=== PATIENT | male | born 1975 | race Hispanic/Latino ===

== ENCOUNTER 2020-12-12 03:30 | Inpatient (IN) | payer SELFPAY ==
[2020-12-12 04:54] LABS: #Lymphocytes 0.4 thou/uL (1.20-3.40); #Monocytes 0.1 thou/uL (0.11-0.59); #Neutrophils 1.6 thou/uL (1.40-6.50); %Eosinophils 0.3 % (0.0-10.0); %Lymphocytes 20.5 % (21.0-51.0); %Monocytes 2.2 % (0.0-10.0); %Neutrophils 76.9 % (42.0-75.0); Hemoglobin 14.4 g/dL (14.0-18.0); Mean Corpuscular HGB CONC 34.3 g/dL (32.0-36.0); Mean Corpuscular Hemoglobin 30.3 pg (27.0-31.0); Mean Corpuscular Volume 88.4 fL (78.0-98.0); Mean Platelet Volume 8.2 fL (7.4-10.4); Platelet Count 289 thou/uL (130-400); RBC Distribution Width 11.4 % (11.5-14.5); Red Blood Cell (RBC) Count 4.73 mill/uL (4.70-6.10)
[2020-12-12 05:13] LABS: ALT (SGPT) 33 U/L (8-55); AST (SGOT) 25 U/L (5-34); Albumin 3.2 g/dL (3.5-5.0); Alkaline Phosphatase 87 U/L (40-110); Anion Gap 20 mmol/L (10-20); BUN (Urea Nitrogen) 22 mg/dL (8.9-20.6); Bilirubin, Total 0.4 mg/dL (0.2-1.2); Calc. Creatinine Clearance 0 mL/min (70-130); Calcium 8.6 mg/dL (7.8-10.44); Carbon Dioxide 23 mmol/L (22-29); Chloride 98 mmol/L (98-107); Globulin 3.7 g/dL (2.4-3.5); Glucose 360 mg/dL (70-105); Potassium 4.8 mmol/L (3.5-5.1); Protein, Total 6.9 g/dL (6.0-8.3); Sodium 136 mmol/L (136-145)
[2020-12-12] MEDS ORDERED: Ondansetron PF 4 MG/2 ML Vial IVP PRN (07:00)
[2020-12-12] MEDS ORDERED: Ondansetron ODT 4 MG TAB SL PRN (07:00)
[2020-12-12] MEDS ORDERED: Acetaminophen 325 MG TAB PO PRN (07:00)
[2020-12-12] MEDS ORDERED: Loperamide HCl 2 MG CAP PO PRN ×2 (07:53)
[2020-12-12] MEDS ORDERED: Dextrose 5% in Water 1,000 ML IV PRN (07:55)
[2020-12-12] MEDS ORDERED: Dextrose 50% Abboject 50 ML SYRINGE SLOW IVP PRN (07:55)
[2020-12-12] MEDS ORDERED: REMDESIVIR (EUA) 200 MG in Sodium Chloride 0.9% 250 ML 210 ML IV SCH (09:00)
[2020-12-12] MEDS ORDERED: Enoxaparin Sodium 40 MG/0.4 ML SYRINGE SC SCH (09:00)
[2020-12-12] MEDS: Zinc Sulfate 220 MG CAP PO SCH (11:29)
[2020-12-12] MEDS: Ascorbic Acid 500 mg Chewable Tablet PO SCH (11:29)
[2020-12-12] MEDS: Dexamethasone 4 MG TAB PO SCH (11:30)
[2020-12-12] MEDS: HumaLOG 300 UNITS/3 ML VIAL SC PRN ×3 (11:31→21:12)
[2020-12-12] MEDS: Preparation H HC 1% Cream 26 GM TUBE TOP SCH (16:33)
[2020-12-12] MEDS: Insulin Glargine 10 UNITS in Pre-Filled Syringe 1 EACH SC SCH (21:12)
[2020-12-13] MEDS: Acetaminophen 325 MG TAB PO PRN (04:57)
[2020-12-13] MEDS: HumaLOG 300 UNITS/3 ML VIAL SC PRN ×3 (04:58→18:17)
[2020-12-13 05:31] LABS: #Lymphocytes 0.5 thou/uL (1.20-3.40); #Monocytes 0.3 thou/uL (0.11-0.59); #Neutrophils 4.2 thou/uL (1.40-6.50); %Basophils 0.1 % (0.0-1.0); %Eosinophils 0.2 % (0.0-10.0); %Lymphocytes 9.4 % (21.0-51.0); %Monocytes 5.2 % (0.0-10.0); %Neutrophils 85.1 % (42.0-75.0); Hemoglobin 14.3 g/dL (14.0-18.0); Mean Corpuscular HGB CONC 34.8 g/dL (32.0-36.0); Mean Corpuscular Hemoglobin 30.7 pg (27.0-31.0); Mean Corpuscular Volume 88.2 fL (78.0-98.0); Mean Platelet Volume 8.2 fL (7.4-10.4); Platelet Count 245 thou/uL (130-400); RBC Distribution Width 11.2 % (11.5-14.5); Red Blood Cell (RBC) Count 4.65 mill/uL (4.70-6.10)
[2020-12-13 05:51] LABS: Anion Gap 17 mmol/L (10-20); BUN (Urea Nitrogen) 27 mg/dL (8.9-20.6); Calc. Creatinine Clearance 120 mL/min (70-130); Calcium 8.6 mg/dL (7.8-10.44); Carbon Dioxide 23 mmol/L (22-29); Chloride 97 mmol/L (98-107); Glucose 394 mg/dL (70-105); Potassium 4.9 mmol/L (3.5-5.1); Sodium 132 mmol/L (136-145)
[2020-12-13] MEDS ORDERED: Sodium Chloride 0.9% 500 ML IV SCH (08:15)
[2020-12-13] MEDS: Zinc Sulfate 220 MG CAP PO SCH (08:41)
[2020-12-13] MEDS: Enoxaparin Sodium 40 MG/0.4 ML SYRINGE SC SCH ×2 (08:41→20:44)
[2020-12-13] MEDS: Dexamethasone 4 MG TAB PO SCH (08:41)
[2020-12-13] MEDS: Ascorbic Acid 500 mg Chewable Tablet PO SCH (08:41)
[2020-12-13 08:42] LABS: Hemoglobin A1c 8.9 % (4.0-6.0)
[2020-12-13] MEDS: REMDESIVIR (EUA) 100 MG in Sodium Chloride 0.9% 250 ML 230 ML IV SCH (08:42)
[2020-12-13] MEDS: Preparation H HC 1% Cream 26 GM TUBE TOP SCH ×2 (08:42→20:57)
[2020-12-13] MEDS ORDERED: FLU VACC QS2020-21(6MOS UP)/PF 60 MCG/0.5 ML SYRINGE IM ONE (09:00)
[2020-12-13] MEDS ORDERED: Preparation H Ointment 28 GM TUBE TOP PRN (10:39)
[2020-12-13] MEDS ORDERED: Witch Hazel-Glycerin 1 EACH JAR TOP PRN (10:39)
[2020-12-13] MEDS: Insulin Glargine 10 UNITS in Pre-Filled Syringe 1 EACH SC SCH (20:45)
[2020-12-14 05:25] LABS: #Lymphocytes 0.8 thou/uL (1.20-3.40); #Monocytes 0.2 thou/uL (0.11-0.59); #Neutrophils 4.1 thou/uL (1.40-6.50); %Basophils 0.2 % (0.0-1.0); %Eosinophils 0.8 % (0.0-10.0); %Lymphocytes 15.5 % (21.0-51.0); %Monocytes 3.6 % (0.0-10.0); %Neutrophils 79.9 % (42.0-75.0); Hemoglobin 13.6 g/dL (14.0-18.0); Mean Corpuscular HGB CONC 32.7 g/dL (32.0-36.0); Mean Corpuscular Hemoglobin 28.8 pg (27.0-31.0); Mean Platelet Volume 8.3 fL (7.4-10.4); Platelet Count 240 thou/uL (130-400); RBC Distribution Width 11.2 % (11.5-14.5); Red Blood Cell (RBC) Count 4.71 mill/uL (4.70-6.10); White Blood Cell (WBC) Count 5.1 thou/uL (4.8-10.8)
[2020-12-14 05:46] LABS: Anion Gap 14 mmol/L (10-20); BUN (Urea Nitrogen) 23 mg/dL (8.9-20.6); Calc. Creatinine Clearance 143 mL/min (70-130); Calcium 8.4 mg/dL (7.8-10.44); Carbon Dioxide 24 mmol/L (22-29); Chloride 102 mmol/L (98-107); Glucose 239 mg/dL (70-105); Potassium 4.3 mmol/L (3.5-5.1); Sodium 136 mmol/L (136-145)
[2020-12-14] MEDS: Dexamethasone 4 MG TAB PO SCH (09:33)
[2020-12-14] MEDS: Ascorbic Acid 500 mg Chewable Tablet PO SCH (09:34)
[2020-12-14] MEDS: Insulin Glargine 10 UNITS in Pre-Filled Syringe 1 EACH SC SCH ×2 (09:34→22:17)
[2020-12-14] MEDS: Zinc Sulfate 220 MG CAP PO SCH (09:34)
[2020-12-14] MEDS: Enoxaparin Sodium 40 MG/0.4 ML SYRINGE SC SCH ×2 (09:34→22:16)
[2020-12-14] MEDS: REMDESIVIR (EUA) 100 MG in Sodium Chloride 0.9% 250 ML 230 ML IV SCH (09:34)
[2020-12-14] MEDS: Preparation H HC 1% Cream 26 GM TUBE TOP SCH ×2 (09:35→21:00)
[2020-12-14] MEDS: HumaLOG 300 UNITS/3 ML VIAL SC PRN ×3 (11:40→22:17)
[2020-12-15 05:49] LABS: #Eosinphils 0.2 thou/uL (0.0-0.7); #Lymphocytes 1.2 thou/uL (1.20-3.40); #Monocytes 0.3 thou/uL (0.11-0.59); #Neutrophils 5.7 thou/uL (1.40-6.50); %Basophils 0.2 % (0.0-1.0); %Eosinophils 2.3 % (0.0-10.0); %Lymphocytes 16.1 % (21.0-51.0); %Monocytes 3.6 % (0.0-10.0); %Neutrophils 77.9 % (42.0-75.0); Hemoglobin 13.6 g/dL (14.0-18.0); Mean Corpuscular HGB CONC 31.9 g/dL (32.0-36.0); Mean Corpuscular Hemoglobin 28.4 pg (27.0-31.0); Mean Platelet Volume 8.2 fL (7.4-10.4); Platelet Count 210 thou/uL (130-400); RBC Distribution Width 11.4 % (11.5-14.5); Red Blood Cell (RBC) Count 4.77 mill/uL (4.70-6.10); White Blood Cell (WBC) Count 7.3 thou/uL (4.8-10.8)
[2020-12-15 06:14] LABS: Anion Gap 14 mmol/L (10-20); BUN (Urea Nitrogen) 18 mg/dL (8.9-20.6); Calc. Creatinine Clearance 149 mL/min (70-130); Calcium 8.2 mg/dL (7.8-10.44); Carbon Dioxide 24 mmol/L (22-29); Chloride 102 mmol/L (98-107); Glucose 164 mg/dL (70-105); Potassium 4.1 mmol/L (3.5-5.1); Sodium 136 mmol/L (136-145)
[2020-12-15] MEDS: HumaLOG 300 UNITS/3 ML VIAL SC PRN ×4 (06:23→22:33)
[2020-12-15] MEDS: Ascorbic Acid 500 mg Chewable Tablet PO SCH (09:14)
[2020-12-15] MEDS: REMDESIVIR (EUA) 100 MG in Sodium Chloride 0.9% 250 ML 230 ML IV SCH (09:14)
[2020-12-15] MEDS: Dexamethasone 4 MG TAB PO SCH (09:14)
[2020-12-15] MEDS: Enoxaparin Sodium 40 MG/0.4 ML SYRINGE SC SCH ×2 (09:14→22:27)
[2020-12-15] MEDS: Zinc Sulfate 220 MG CAP PO SCH (09:14)
[2020-12-15] MEDS: Insulin Glargine 10 UNITS in Pre-Filled Syringe 1 EACH SC SCH ×2 (09:15→22:28)
[2020-12-15] MEDS: Preparation H HC 1% Cream 26 GM TUBE TOP SCH ×2 (14:18→22:36)
[2020-12-16 05:25] LABS: #Eosinphils 0.1 thou/uL (0.0-0.7); #Lymphocytes 1.1 thou/uL (1.20-3.40); #Monocytes 0.3 thou/uL (0.11-0.59); #Neutrophils 7.3 thou/uL (1.40-6.50); %Eosinophils 1.6 % (0.0-10.0); %Lymphocytes 12.8 % (21.0-51.0); %Monocytes 3.4 % (0.0-10.0); %Neutrophils 82.1 % (42.0-75.0); Hemoglobin 13.3 g/dL (14.0-18.0); Mean Corpuscular HGB CONC 33.5 g/dL (32.0-36.0); Mean Corpuscular Hemoglobin 29.4 pg (27.0-31.0); Mean Corpuscular Volume 87.8 fL (78.0-98.0); Mean Platelet Volume 8.1 fL (7.4-10.4); Platelet Count 210 thou/uL (130-400); RBC Distribution Width 11.5 % (11.5-14.5); Red Blood Cell (RBC) Count 4.51 mill/uL (4.70-6.10); White Blood Cell (WBC) Count 8.9 thou/uL (4.8-10.8)
[2020-12-16 05:41] LABS: Anion Gap 15 mmol/L (10-20); BUN (Urea Nitrogen) 19 mg/dL (8.9-20.6); Calc. Creatinine Clearance 137 mL/min (70-130); Calcium 8.4 mg/dL (7.8-10.44); Carbon Dioxide 24 mmol/L (22-29); Chloride 99 mmol/L (98-107); Glucose 363 mg/dL (70-105); Potassium 4.4 mmol/L (3.5-5.1); Sodium 134 mmol/L (136-145)
[2020-12-16] MEDS: HumaLOG 300 UNITS/3 ML VIAL SC PRN ×4 (06:14→21:08)
[2020-12-16] MEDS: Enoxaparin Sodium 40 MG/0.4 ML SYRINGE SC SCH ×2 (09:04→21:07)
[2020-12-16] MEDS: Lisinopril 2.5 MG TAB PO SCH (09:04)
[2020-12-16] MEDS: Zinc Sulfate 220 MG CAP PO SCH (09:04)
[2020-12-16] MEDS: Ascorbic Acid 500 mg Chewable Tablet PO SCH (09:04)
[2020-12-16] MEDS: Insulin Glargine 10 UNITS in Pre-Filled Syringe 1 EACH SC SCH (09:04)
[2020-12-16] MEDS: Dexamethasone 4 MG TAB PO SCH (09:04)
[2020-12-16] MEDS: cefTRIAXone\\ROCEPHIN 1 GM in Sodium Chloride 0.9% 100 ML IVPB SCH (10:17)
[2020-12-16] MEDS: Azithromycin 500 MG in Sodium Chloride 0.9% 250 ML 250 ML IVPB SCH (11:35)
[2020-12-16] MEDS: REMDESIVIR (EUA) 100 MG in Sodium Chloride 0.9% 250 ML 230 ML IV SCH (13:10)
[2020-12-16] MEDS: Preparation H HC 1% Cream 26 GM TUBE TOP SCH (14:26)
[2020-12-16] MEDS: Insulin Glargine 13 UNITS in Pre-Filled Syringe 1 EACH SC SCH (21:07)
[2020-12-16] MEDS: Lorazepam 1 MG TAB PO PRN (21:37)
[2020-12-17] MEDS: Preparation H HC 1% Cream 26 GM TUBE TOP SCH ×3 (03:57→22:55)
[2020-12-17] MEDS: HumaLOG 300 UNITS/3 ML VIAL SC PRN ×4 (04:46→20:49)
[2020-12-17 05:13] LABS: #Eosinphils 0.1 thou/uL (0.0-0.7); #Lymphocytes 1.2 thou/uL (1.20-3.40); #Monocytes 0.4 thou/uL (0.11-0.59); #Neutrophils 8.3 thou/uL (1.40-6.50); %Basophils 0.1 % (0.0-1.0); %Eosinophils 1.4 % (0.0-10.0); %Lymphocytes 12.3 % (21.0-51.0); %Monocytes 4.1 % (0.0-10.0); %Neutrophils 82.2 % (42.0-75.0); Hemoglobin 14.3 g/dL (14.0-18.0); Mean Corpuscular HGB CONC 34.5 g/dL (32.0-36.0); Mean Corpuscular Hemoglobin 30.4 pg (27.0-31.0); Mean Corpuscular Volume 88.3 fL (78.0-98.0); Mean Platelet Volume 8.2 fL (7.4-10.4); Platelet Count 239 thou/uL (130-400); RBC Distribution Width 11.6 % (11.5-14.5); Red Blood Cell (RBC) Count 4.72 mill/uL (4.70-6.10); White Blood Cell (WBC) Count 10.1 thou/uL (4.8-10.8)
[2020-12-17 05:31] LABS: Anion Gap 15 mmol/L (10-20); BUN (Urea Nitrogen) 18 mg/dL (8.9-20.6); Calc. Creatinine Clearance 144 mL/min (70-130); Calcium 8.6 mg/dL (7.8-10.44); Carbon Dioxide 25 mmol/L (22-29); Chloride 102 mmol/L (98-107); Glucose 251 mg/dL (70-105); Potassium 4.7 mmol/L (3.5-5.1); Sodium 137 mmol/L (136-145)
[2020-12-17] MEDS: Lisinopril 2.5 MG TAB PO SCH (08:23)
[2020-12-17] MEDS: Zinc Sulfate 220 MG CAP PO SCH (08:23)
[2020-12-17] MEDS: Enoxaparin Sodium 40 MG/0.4 ML SYRINGE SC SCH ×2 (08:23→20:47)
[2020-12-17] MEDS: Ascorbic Acid 500 mg Chewable Tablet PO SCH (08:23)
[2020-12-17] MEDS: Dexamethasone 4 MG TAB PO SCH (08:23)
[2020-12-17] MEDS: Insulin Glargine 13 UNITS in Pre-Filled Syringe 1 EACH SC SCH ×2 (11:33→20:48)
[2020-12-17] MEDS: cefTRIAXone\\ROCEPHIN 1 GM in Sodium Chloride 0.9% 100 ML IVPB SCH (11:34)
[2020-12-17] MEDS: Azithromycin 500 MG in Sodium Chloride 0.9% 250 ML 250 ML IVPB SCH (12:30)
[2020-12-17] MEDS: Lorazepam 1 MG TAB PO PRN (20:47)
[2020-12-17] MEDS: Guaifenesin DM 100-10/5 ML UDCUP PO PRN (20:47)
[2020-12-17] MEDS: Melatonin 3 MG TAB PO PRN (20:47)
[2020-12-18] MEDS: HumaLOG 300 UNITS/3 ML VIAL SC PRN ×3 (06:04→20:41)
[2020-12-18] MEDS: Zinc Sulfate 220 MG CAP PO SCH (07:56)
[2020-12-18] MEDS: Dexamethasone 4 MG TAB PO SCH (07:56)
[2020-12-18] MEDS: Enoxaparin Sodium 40 MG/0.4 ML SYRINGE SC SCH ×2 (07:56→20:39)
[2020-12-18] MEDS: Lisinopril 2.5 MG TAB PO SCH (07:56)
[2020-12-18] MEDS: Ascorbic Acid 500 mg Chewable Tablet PO SCH (07:56)
[2020-12-18] MEDS: Preparation H HC 1% Cream 26 GM TUBE TOP SCH ×2 (07:58→22:08)
[2020-12-18] MEDS: Insulin Glargine 13 UNITS in Pre-Filled Syringe 1 EACH SC SCH ×2 (10:50→20:39)
[2020-12-18] MEDS: Azithromycin 500 MG in Sodium Chloride 0.9% 250 ML 250 ML IVPB SCH (10:50)
[2020-12-18] MEDS: cefTRIAXone\\ROCEPHIN 1 GM in Sodium Chloride 0.9% 100 ML IVPB SCH (12:36)
[2020-12-18] MEDS: metFORMIN 500 MG TAB PO SCH (17:44)
[2020-12-18] MEDS: Guaifenesin DM 100-10/5 ML UDCUP PO PRN ×2 (18:03→21:40)
[2020-12-18] MEDS: Melatonin 3 MG TAB PO PRN (20:40)
[2020-12-18] MEDS: Lorazepam 1 MG TAB PO PRN (20:40)
[2020-12-19] MEDS: Lorazepam 1 MG TAB PO PRN ×2 (01:09→20:43)
[2020-12-19] MEDS: Acetaminophen 325 MG TAB PO PRN ×2 (05:09→09:10)
[2020-12-19] MEDS ORDERED: Metoprolol Tartrate 5 MG/5 ML VIAL IVP PRN (08:32)
[2020-12-19] MEDS: Enoxaparin Sodium 40 MG/0.4 ML SYRINGE SC SCH ×2 (09:08→20:43)
[2020-12-19] MEDS: Ascorbic Acid 500 mg Chewable Tablet PO SCH (09:09)
[2020-12-19] MEDS: Zinc Sulfate 220 MG CAP PO SCH (09:09)
[2020-12-19] MEDS: Dexamethasone 4 MG TAB PO SCH (09:09)
[2020-12-19] MEDS: metFORMIN 500 MG TAB PO SCH ×2 (09:09→16:04)
[2020-12-19] MEDS: Insulin Glargine 13 UNITS in Pre-Filled Syringe 1 EACH SC SCH ×2 (09:14→20:43)
[2020-12-19] MEDS: Metoprolol Tartrate 25 MG TAB PO SCH ×2 (09:14→21:00)
[2020-12-19] MEDS: Preparation H HC 1% Cream 26 GM TUBE TOP SCH ×2 (09:31→20:43)
[2020-12-19] MEDS: HumaLOG 300 UNITS/3 ML VIAL SC PRN ×3 (12:07→21:06)
[2020-12-20] MEDS: Acetaminophen 325 MG TAB PO PRN (04:49)
[2020-12-20] MEDS: Lorazepam 1 MG TAB PO PRN ×2 (04:50→21:16)
[2020-12-20] MEDS: Ascorbic Acid 500 mg Chewable Tablet PO SCH (09:08)
[2020-12-20] MEDS: Apixaban 5 MG TAB PO SCH ×2 (09:08→21:16)
[2020-12-20] MEDS: Zinc Sulfate 220 MG CAP PO SCH (09:08)
[2020-12-20] MEDS: Metoprolol Tartrate 25 MG TAB PO SCH ×2 (09:09→21:17)
[2020-12-20] MEDS: metFORMIN 500 MG TAB PO SCH ×2 (09:09→16:18)
[2020-12-20] MEDS: Dexamethasone 4 MG TAB PO SCH (09:09)
[2020-12-20] MEDS: Preparation H HC 1% Cream 26 GM TUBE TOP SCH ×2 (09:10→21:09)
[2020-12-20] MEDS: Insulin Glargine 13 UNITS in Pre-Filled Syringe 1 EACH SC SCH ×3 (09:12→21:08)
[2020-12-20] MEDS: Lorazepam 1 MG TAB PO SCH ×3 (14:43→21:29)
[2020-12-20 16:58] LABS: Calc. Creatinine Clearance 148 mL/min (70-130)
[2020-12-20] MEDS ORDERED: Dexamethasone 4 MG TAB PO SCH (21:00)
[2020-12-20] MEDS: HumaLOG 300 UNITS/3 ML VIAL SC PRN (21:51)
[2020-12-21 03:45] LABS: Hemoglobin 13.3 g/dL (14.0-18.0); Platelet Count 325 thou/uL (130-400)
[2020-12-21] MEDS: Lorazepam 1 MG TAB PO SCH ×3 (05:08→21:57)
[2020-12-21] MEDS ORDERED: methylPREDNISolone Sod Succ/PF 125 MG/2 ML VIAL IVP SCH (07:35)
[2020-12-21] MEDS: Metoprolol Tartrate 25 MG TAB PO SCH ×2 (07:57→19:37)
[2020-12-21] MEDS: Lorazepam 1 MG TAB PO PRN ×3 (07:57→19:37)
[2020-12-21] MEDS: Ascorbic Acid 500 mg Chewable Tablet PO SCH ×3 (07:59→19:37)
[2020-12-21] MEDS: metFORMIN 500 MG TAB PO SCH ×2 (08:00→16:10)
[2020-12-21] MEDS: Zinc Sulfate 220 MG CAP PO SCH (08:00)
[2020-12-21] MEDS: Enoxaparin Sodium 100 MG/ML SYRINGE SC SCH ×2 (08:31→19:37)
[2020-12-21] MEDS: Thiamine 100 MG TAB PO SCH (08:32)
[2020-12-21] MEDS: Preparation H HC 1% Cream 26 GM TUBE TOP SCH ×2 (08:32→19:39)
[2020-12-21] MEDS: Insulin Glargine 13 UNITS in Pre-Filled Syringe 1 EACH SC SCH ×2 (08:32→19:38)
[2020-12-21 08:42] LABS: Anion Gap 18 mmol/L (10-20); BUN (Urea Nitrogen) 25 mg/dL (8.9-20.6); CRP (Inflammatory) 16.26 mg/dL (= or < 0.5); Calc. Creatinine Clearance 151 mL/min (70-130); Calcium 9.1 mg/dL (7.8-10.44); Carbon Dioxide 24 mmol/L (22-29); Chloride 100 mmol/L (98-107); Glucose 238 mg/dL (70-105); Potassium 4.4 mmol/L (3.5-5.1); Sodium 138 mmol/L (136-145)
[2020-12-21] MEDS ORDERED: SODIUM CHLORIDE 0.45% IVPB SCH (09:00)
[2020-12-21] MEDS ORDERED: METHYLPREDNISOLONE SOD SUCC IVPB SCH (09:00)
[2020-12-21] MEDS: HumaLOG 300 UNITS/3 ML VIAL SC PRN (09:32)
[2020-12-21] MEDS: Mometasone Furoate 120 PUFF 220 MCG INH SCH (19:14)
[2020-12-21] MEDS: Cholecalciferol 1,000 UNITS (25 MCG) TAB PO SCH (19:35)
[2020-12-22] MEDS: Lorazepam 1 MG TAB PO PRN ×2 (01:07→12:10)
[2020-12-22 04:16] LABS: #Lymphocytes 1.3 thou/uL (1.20-3.40); #Monocytes 0.8 thou/uL (0.11-0.59); #Neutrophils 8.3 thou/uL (1.40-6.50); %Basophils 0.1 % (0.0-1.0); %Eosinophils 0.1 % (0.0-10.0); %Lymphocytes 12.2 % (21.0-51.0); %Monocytes 7.7 % (0.0-10.0); %Neutrophils 79.9 % (42.0-75.0); Hemoglobin 13.7 g/dL (14.0-18.0); Mean Corpuscular HGB CONC 33.8 g/dL (32.0-36.0); Mean Corpuscular Hemoglobin 29.5 pg (27.0-31.0); Mean Corpuscular Volume 87.3 fL (78.0-98.0); Mean Platelet Volume 9.5 fL (7.4-10.4); Platelet Count 299 thou/uL (130-400); RBC Distribution Width 11.6 % (11.5-14.5); Red Blood Cell (RBC) Count 4.65 mill/uL (4.70-6.10); White Blood Cell (WBC) Count 10.3 thou/uL (4.8-10.8)
[2020-12-22 04:30] LABS: ALT (SGPT) 43 U/L (8-55); AST (SGOT) 24 U/L (5-34); Albumin 2.8 g/dL (3.5-5.0); Alkaline Phosphatase 95 U/L (40-110); Anion Gap 14 mmol/L (10-20); BUN (Urea Nitrogen) 25 mg/dL (8.9-20.6); Bilirubin, Direct 0.2 mg/dL (0.1-0.3); Bilirubin, Total 0.4 mg/dL (0.2-1.2); CRP (Inflammatory) 6.37 mg/dL (= or < 0.5); Calc. Creatinine Clearance 158 mL/min (70-130); Carbon Dioxide 26 mmol/L (22-29); Chloride 101 mmol/L (98-107); Glucose 221 mg/dL (70-105); Potassium 4.5 mmol/L (3.5-5.1); Sodium 136 mmol/L (136-145)
[2020-12-22] MEDS: Lorazepam 1 MG TAB PO SCH ×3 (04:55→21:28)
[2020-12-22] MEDS: Mometasone Furoate 120 PUFF 220 MCG INH SCH ×2 (07:14→18:58)
[2020-12-22] MEDS: Metoprolol Tartrate 25 MG TAB PO SCH ×2 (07:58→21:29)
[2020-12-22] MEDS: Enoxaparin Sodium 100 MG/ML SYRINGE SC SCH ×2 (07:58→21:30)
[2020-12-22] MEDS: SODIUM CHLORIDE 0.45% IVPB SCH (07:58)
[2020-12-22] MEDS: METHYLPREDNISOLONE SOD SUCC IVPB SCH (07:58)
[2020-12-22] MEDS: Ascorbic Acid 500 mg Chewable Tablet PO SCH ×2 (07:59→21:28)
[2020-12-22] MEDS: Insulin Glargine 13 UNITS in Pre-Filled Syringe 1 EACH SC SCH ×2 (07:59→21:55)
[2020-12-22] MEDS: metFORMIN 500 MG TAB PO SCH ×2 (07:59→17:37)
[2020-12-22] MEDS: Zinc Sulfate 220 MG CAP PO SCH (07:59)
[2020-12-22] MEDS: Thiamine 100 MG TAB PO SCH (07:59)
[2020-12-22] MEDS: Preparation H HC 1% Cream 26 GM TUBE TOP SCH ×2 (08:00→21:30)
[2020-12-22] MEDS ORDERED: methylPREDNISolone Sod Succ 40 MG VIAL IVPB SCH (09:00)
[2020-12-22] MEDS: Cholecalciferol 1,000 UNITS (25 MCG) TAB PO SCH (21:29)
[2020-12-22] MEDS: HumaLOG 300 UNITS/3 ML VIAL SC PRN (21:54)
[2020-12-23 04:02] LABS: #Monocytes 0.4 thou/uL (0.11-0.59); #Neutrophils 8.3 thou/uL (1.40-6.50); %Basophils 0.1 % (0.0-1.0); %Lymphocytes 10.6 % (21.0-51.0); %Monocytes 3.6 % (0.0-10.0); %Neutrophils 85.7 % (42.0-75.0); Hemoglobin 14.9 g/dL (14.0-18.0); Mean Corpuscular HGB CONC 33.3 g/dL (32.0-36.0); Mean Corpuscular Hemoglobin 28.8 pg (27.0-31.0); Mean Corpuscular Volume 86.4 fL (78.0-98.0); Mean Platelet Volume 8.2 fL (7.4-10.4); Platelet Count 370 thou/uL (130-400); RBC Distribution Width 11.7 % (11.5-14.5); Red Blood Cell (RBC) Count 5.17 mill/uL (4.70-6.10); White Blood Cell (WBC) Count 9.7 thou/uL (4.8-10.8)
[2020-12-23 04:28] LABS: Anion Gap 18 mmol/L (10-20); BUN (Urea Nitrogen) 25 mg/dL (8.9-20.6); CRP (Inflammatory) 2.48 mg/dL (= or < 0.5); Calc. Creatinine Clearance 178 mL/min (70-130); Calcium 9.3 mg/dL (7.8-10.44); Carbon Dioxide 26 mmol/L (22-29); Chloride 97 mmol/L (98-107); Glucose 111 mg/dL (70-105); Potassium 4.9 mmol/L (3.5-5.1); Sodium 136 mmol/L (136-145)
[2020-12-23] MEDS: METHYLPREDNISOLONE SOD SUCC IVPB SCH (05:09)
[2020-12-23] MEDS: SODIUM CHLORIDE 0.45% IVPB SCH (05:09)
[2020-12-23] MEDS: Lorazepam 1 MG TAB PO SCH ×3 (05:09→21:38)
[2020-12-23] MEDS: HumaLOG 300 UNITS/3 ML VIAL SC PRN ×3 (05:31→17:27)
[2020-12-23] MEDS: Mometasone Furoate 120 PUFF 220 MCG INH SCH ×2 (06:54→18:52)
[2020-12-23] MEDS: Ascorbic Acid 500 mg Chewable Tablet PO SCH ×2 (08:28→21:38)
[2020-12-23] MEDS: Thiamine 100 MG TAB PO SCH (08:29)
[2020-12-23] MEDS: Zinc Sulfate 220 MG CAP PO SCH (08:29)
[2020-12-23] MEDS: Metoprolol Tartrate 25 MG TAB PO SCH ×2 (08:29→21:38)
[2020-12-23] MEDS: metFORMIN 500 MG TAB PO SCH ×2 (08:29→16:41)
[2020-12-23] MEDS: Enoxaparin Sodium 100 MG/ML SYRINGE SC SCH ×2 (08:30→21:37)
[2020-12-23] MEDS: Insulin Glargine 13 UNITS in Pre-Filled Syringe 1 EACH SC SCH ×2 (08:30→22:14)
[2020-12-23] MEDS: Preparation H HC 1% Cream 26 GM TUBE TOP SCH ×2 (09:00→21:39)
[2020-12-23] MEDS ORDERED: Furosemide 40 MG/4 ML VIAL SLOW IVP SCH (13:15)
[2020-12-23] MEDS: Melatonin 3 MG TAB PO PRN (21:36)
[2020-12-23] MEDS: Cholecalciferol 1,000 UNITS (25 MCG) TAB PO SCH (21:37)
[2020-12-24] MEDS: Lorazepam 1 MG TAB PO SCH ×3 (05:56→20:18)
[2020-12-24] MEDS: Mometasone Furoate 120 PUFF 220 MCG INH SCH ×2 (06:33→18:17)
[2020-12-24] MEDS: Enoxaparin Sodium 100 MG/ML SYRINGE SC SCH ×2 (07:48→20:16)
[2020-12-24] MEDS: Zinc Sulfate 220 MG CAP PO SCH (07:49)
[2020-12-24] MEDS: metFORMIN 500 MG TAB PO SCH ×2 (07:49→17:07)
[2020-12-24] MEDS: Furosemide 40 MG/4 ML VIAL SLOW IVP SCH ×2 (07:49→07:50)
[2020-12-24] MEDS: Metoprolol Tartrate 25 MG TAB PO SCH ×2 (07:49→20:17)
[2020-12-24] MEDS: Ascorbic Acid 500 mg Chewable Tablet PO SCH (07:49)
[2020-12-24] MEDS: Thiamine 100 MG TAB PO SCH (07:50)
[2020-12-24] MEDS: Preparation H HC 1% Cream 26 GM TUBE TOP SCH ×2 (08:50→20:57)
[2020-12-24] MEDS: Lorazepam 2 MG/ML VIAL SLOW IVP PRN ×2 (09:07→23:16)
[2020-12-24] MEDS: Insulin Glargine 13 UNITS in Pre-Filled Syringe 1 EACH SC SCH ×2 (09:07→20:17)
[2020-12-24 10:14] LABS: #Lymphocytes 1.3 thou/uL (1.20-3.40); #Monocytes 0.7 thou/uL (0.11-0.59); #Neutrophils 10.7 thou/uL (1.40-6.50); %Basophils 0.3 % (0.0-1.0); %Eosinophils 0.1 % (0.0-10.0); %Lymphocytes 10.2 % (21.0-51.0); %Monocytes 5.7 % (0.0-10.0); %Neutrophils 83.7 % (42.0-75.0); Hemoglobin 17.2 g/dL (14.0-18.0); Mean Corpuscular HGB CONC 35.1 g/dL (32.0-36.0); Mean Corpuscular Hemoglobin 30.5 pg (27.0-31.0); Mean Corpuscular Volume 86.8 fL (78.0-98.0); Mean Platelet Volume 8.4 fL (7.4-10.4); Platelet Count 410 thou/uL (130-400); RBC Distribution Width 11.8 % (11.5-14.5); Red Blood Cell (RBC) Count 5.63 mill/uL (4.70-6.10); White Blood Cell (WBC) Count 12.8 thou/uL (4.8-10.8)
[2020-12-24 10:28] LABS: Anion Gap 20 mmol/L (10-20); BUN (Urea Nitrogen) 29 mg/dL (8.9-20.6); CRP (Inflammatory) 1.02 mg/dL (= or < 0.5); Calc. Creatinine Clearance 132 mL/min (70-130); Calcium 9.7 mg/dL (7.8-10.44); Carbon Dioxide 30 mmol/L (22-29); Chloride 91 mmol/L (98-107); Glucose 163 mg/dL (70-105); Potassium 4.6 mmol/L (3.5-5.1); Sodium 136 mmol/L (136-145)
[2020-12-24] MEDS: METHYLPREDNISOLONE SOD SUCC IVPB SCH (10:30)
[2020-12-24] MEDS: SODIUM CHLORIDE 0.45% IVPB SCH (10:30)
[2020-12-24] MEDS: Ascorbic Acid 2,000 MG in Sodium Chloride 0.9% 50 ML IVPB SCH ×3 (11:50→23:07)
[2020-12-24] MEDS: HumaLOG 300 UNITS/3 ML VIAL SC PRN ×3 (12:12→23:13)
[2020-12-24] MEDS: Cholecalciferol 1,000 UNITS (25 MCG) TAB PO SCH (20:15)
[2020-12-25 03:48] LABS: #Lymphocytes 1.7 thou/uL (1.20-3.40); #Monocytes 0.8 thou/uL (0.11-0.59); #Neutrophils 11.3 thou/uL (1.40-6.50); %Eosinophils 0.2 % (0.0-10.0); %Lymphocytes 12.3 % (21.0-51.0); %Monocytes 5.6 % (0.0-10.0); %Neutrophils 81.8 % (42.0-75.0); Hemoglobin 15.4 g/dL (14.0-18.0); Mean Corpuscular HGB CONC 34.9 g/dL (32.0-36.0); Mean Corpuscular Hemoglobin 30.1 pg (27.0-31.0); Mean Corpuscular Volume 86.1 fL (78.0-98.0); Mean Platelet Volume 8.7 fL (7.4-10.4); Platelet Count 353 thou/uL (130-400); RBC Distribution Width 11.7 % (11.5-14.5); Red Blood Cell (RBC) Count 5.11 mill/uL (4.70-6.10); White Blood Cell (WBC) Count 13.8 thou/uL (4.8-10.8)
[2020-12-25 04:13] LABS: Anion Gap 17 mmol/L (10-20); BUN (Urea Nitrogen) 33 mg/dL (8.9-20.6); CRP (Inflammatory) 0.56 mg/dL (= or < 0.5); Calc. Creatinine Clearance 158 mL/min (70-130); Calcium 9.3 mg/dL (7.8-10.44); Carbon Dioxide 29 mmol/L (22-29); Chloride 94 mmol/L (98-107); Glucose 145 mg/dL (70-105); Potassium 4.4 mmol/L (3.5-5.1); Sodium 136 mmol/L (136-145)
[2020-12-25] MEDS: METHYLPREDNISOLONE SOD SUCC IVPB SCH (04:17)
[2020-12-25] MEDS: SODIUM CHLORIDE 0.45% IVPB SCH (04:17)
[2020-12-25] MEDS: Lorazepam 1 MG TAB PO SCH ×3 (06:14→21:04)
[2020-12-25] MEDS: Ascorbic Acid 2,000 MG in Sodium Chloride 0.9% 50 ML IVPB SCH ×4 (06:14→23:54)
[2020-12-25] MEDS: Mometasone Furoate 120 PUFF 220 MCG INH SCH ×2 (06:29→19:02)
[2020-12-25] MEDS: Enoxaparin Sodium 100 MG/ML SYRINGE SC SCH (08:12)
[2020-12-25] MEDS: Metoprolol Tartrate 25 MG TAB PO SCH ×2 (08:13→21:04)
[2020-12-25] MEDS: Furosemide 40 MG/4 ML VIAL SLOW IVP SCH (08:13)
[2020-12-25] MEDS: metFORMIN 500 MG TAB PO SCH ×2 (08:13→16:01)
[2020-12-25] MEDS: Zinc Sulfate 220 MG CAP PO SCH ×2 (08:23→08:25)
[2020-12-25] MEDS: Preparation H HC 1% Cream 26 GM TUBE TOP SCH ×2 (08:25→21:05)
[2020-12-25] MEDS: Thiamine 100 MG TAB PO SCH (08:26)
[2020-12-25] MEDS: Insulin Glargine 13 UNITS in Pre-Filled Syringe 1 EACH SC SCH ×2 (10:44→21:06)
[2020-12-25] MEDS: Piperacillin/Tazobactam 3.375 GM in Sodium Chloride 0.9% 100 ML IVPB SCH ×3 (10:50→22:46)
[2020-12-25] MEDS: HumaLOG 300 UNITS/3 ML VIAL SC PRN (11:31)
[2020-12-25] MEDS: Cholecalciferol 1,000 UNITS (25 MCG) TAB PO SCH (21:04)
[2020-12-26] MEDS: Lorazepam 2 MG/ML VIAL SLOW IVP PRN (02:31)
[2020-12-26 02:57] LABS: Actual Bicarbonate (HCO3a) 29.2 mEq/L (22-28); Base Excess (BEa) 4.8 mEq/L (-2.0 to +3.0); CO2 Tension 42.2 mmHg (35.0-45.0); Calcium, Ionized (arterial) 1.18 mmol/L (1.12-1.30); Carboxyhemoglobin (COHb) 0.9 gm% (0.0-3.0); Hemoglobin (Hb) 16.3 g/dL (14.0-18.0); pH, Arterial 7.46 (7.35-7.45)
[2020-12-26 03:09] LABS: O2 Tension (PaO2), arterial 47.7 mmHg (80.0-100.0)
[2020-12-26 03:10] LABS: Puncture Site RBA
[2020-12-26] MEDS ORDERED: Ziprasidone 20 MG VIAL IM SCH (03:45)
[2020-12-26] MEDS ORDERED: Sterile Water 10 ML VIAL FS PRN (03:45)
[2020-12-26] MEDS: Piperacillin/Tazobactam 3.375 GM in Sodium Chloride 0.9% 100 ML IVPB SCH ×4 (03:54→21:30)
[2020-12-26 04:08] LABS: #Lymphocytes 1.4 thou/uL (1.20-3.40); #Monocytes 0.5 thou/uL (0.11-0.59); #Neutrophils 10.4 thou/uL (1.40-6.50); %Basophils 0.3 % (0.0-1.0); %Eosinophils 0.2 % (0.0-10.0); %Lymphocytes 11.1 % (21.0-51.0); %Monocytes 4.3 % (0.0-10.0); %Neutrophils 84.1 % (42.0-75.0); Hemoglobin 16.5 g/dL (14.0-18.0); Mean Corpuscular HGB CONC 33.9 g/dL (32.0-36.0); Mean Corpuscular Hemoglobin 29.2 pg (27.0-31.0); Mean Corpuscular Volume 86.2 fL (78.0-98.0); Mean Platelet Volume 9.5 fL (7.4-10.4); Platelet Count 296 thou/uL (130-400); Red Blood Cell (RBC) Count 5.65 mill/uL (4.70-6.10); White Blood Cell (WBC) Count 12.4 thou/uL (4.8-10.8)
[2020-12-26 04:12] LABS: Anion Gap 17 mmol/L (10-20); BUN (Urea Nitrogen) 31 mg/dL (8.9-20.6); CRP (Inflammatory) Less than 0.50 mg/dL (= or < 0.5); Calc. Creatinine Clearance 126 mL/min (70-130); Calcium 8.9 mg/dL (7.8-10.44); Carbon Dioxide 27 mmol/L (22-29); Chloride 94 mmol/L (98-107); Glucose 177 mg/dL (70-105); Potassium 4.3 mmol/L (3.5-5.1); Sodium 134 mmol/L (136-145)
[2020-12-26] MEDS: METHYLPREDNISOLONE SOD SUCC IVPB SCH (04:28)
[2020-12-26] MEDS: SODIUM CHLORIDE 0.45% IVPB SCH (04:28)
[2020-12-26] MEDS: HumaLOG 300 UNITS/3 ML VIAL SC PRN ×2 (06:05→16:11)
[2020-12-26] MEDS: Ascorbic Acid 2,000 MG in Sodium Chloride 0.9% 50 ML IVPB SCH ×4 (06:06→23:26)
[2020-12-26] MEDS: Lorazepam 1 MG TAB PO SCH (06:06)
[2020-12-26] MEDS: Mometasone Furoate 120 PUFF 220 MCG INH SCH ×2 (08:31→19:09)
[2020-12-26] MEDS ORDERED: Enoxaparin Sodium 60 MG/0.6 ML SYRINGE SC SCH (09:00)
[2020-12-26] MEDS ORDERED: Ivermectin 3 MG TAB PO SCH (09:00)
[2020-12-26] MEDS: Zinc Sulfate 220 MG CAP PO SCH (10:35)
[2020-12-26] MEDS: Aspirin 325 mg Enteric Coated Tablet PO SCH (10:35)
[2020-12-26] MEDS: metFORMIN 500 MG TAB PO SCH ×2 (10:35→17:28)
[2020-12-26] MEDS: Enoxaparin Sodium 100 MG/ML SYRINGE SC SCH ×2 (10:36→21:05)
[2020-12-26] MEDS: Preparation H HC 1% Cream 26 GM TUBE TOP SCH ×2 (10:38→21:07)
[2020-12-26] MEDS: Insulin Glargine 13 UNITS in Pre-Filled Syringe 1 EACH SC SCH (10:39)
[2020-12-26] MEDS: Thiamine 100 MG TAB PO SCH ×3 (10:43→12:59)
[2020-12-26] MEDS: Furosemide 40 MG/4 ML VIAL SLOW IVP SCH (10:49)
[2020-12-26] MEDS: Metoprolol Tartrate 25 MG TAB PO SCH ×2 (11:06→21:05)
[2020-12-26 12:42] LABS: Actual Bicarbonate (HCO3a) 34.2 mEq/L (22-28); Base Excess (BEa) 9.4 mEq/L (-2.0 to +3.0); CO2 Tension 45.9 mmHg (35.0-45.0); Calcium, Ionized (arterial) 1.14 mmol/L (1.12-1.30); Carboxyhemoglobin (COHb) 0.7 gm% (0.0-3.0); Hemoglobin (Hb) 16.8 g/dL (14.0-18.0); pH, Arterial 7.49 (7.35-7.45)
[2020-12-26 12:43] LABS: Puncture Site RBA
[2020-12-26 12:48] LABS: ALV-art Gradient 276.035 mmHg (0-20)
[2020-12-26] MEDS: Insulin Glargine 15 UNITS in Pre-Filled Syringe SC SCH (21:05)
[2020-12-26] MEDS: Cholecalciferol 1,000 UNITS (25 MCG) TAB PO SCH (21:06)
[2020-12-26] MEDS: Temazepam 15 MG CAP PO PRN (21:06)
[2020-12-26] MEDS: Melatonin 3 MG TAB PO PRN (21:06)
[2020-12-27] MEDS: METHYLPREDNISOLONE SOD SUCC IVPB SCH (03:21)
[2020-12-27] MEDS: SODIUM CHLORIDE 0.45% IVPB SCH (03:21)
[2020-12-27] MEDS: Piperacillin/Tazobactam 3.375 GM in Sodium Chloride 0.9% 100 ML IVPB SCH ×4 (03:24→21:38)
[2020-12-27 03:53] LABS: Anion Gap 14 mmol/L (10-20); BUN (Urea Nitrogen) 29 mg/dL (8.9-20.6); CRP (Inflammatory) Less than 0.50 mg/dL (= or < 0.5); Calc. Creatinine Clearance 140 mL/min (70-130); Calcium 8.6 mg/dL (7.8-10.44); Carbon Dioxide 30 mmol/L (22-29); Chloride 96 mmol/L (98-107); Glucose 178 mg/dL (70-105); Potassium 4.5 mmol/L (3.5-5.1); Sodium 135 mmol/L (136-145)
[2020-12-27 04:38] LABS: Hemoglobin 14.6 g/dL (14.0-18.0); Mean Corpuscular HGB CONC 34.7 g/dL (32.0-36.0); Mean Corpuscular Hemoglobin 30.2 pg (27.0-31.0); Mean Corpuscular Volume 86.9 fL (78.0-98.0); Mean Platelet Volume 8.9 fL (7.4-10.4); Platelet Count 284 thou/uL (130-400); RBC Distribution Width 11.9 % (11.5-14.5); Red Blood Cell (RBC) Count 4.82 mill/uL (4.70-6.10); White Blood Cell (WBC) Count 10.9 thou/uL (4.8-10.8)
[2020-12-27] MEDS: Ascorbic Acid 2,000 MG in Sodium Chloride 0.9% 50 ML IVPB SCH (05:38)
[2020-12-27 05:42] LABS: Band 4 % (5-11); Lymphocytes 7 % (21-51); MDiff Complete? YES; Monocytes 6 % (0-10); Neutrophil 83 % (42-75)
[2020-12-27] MEDS: Mometasone Furoate 120 PUFF 220 MCG INH SCH ×2 (08:06→18:38)
[2020-12-27] MEDS: Ascorbic Acid 500 mg Chewable Tablet PO SCH ×2 (08:40→21:34)
[2020-12-27] MEDS: metFORMIN 500 MG TAB PO SCH ×2 (08:40→16:31)
[2020-12-27] MEDS: Aspirin 325 mg Enteric Coated Tablet PO SCH (08:40)
[2020-12-27] MEDS: Enoxaparin Sodium 100 MG/ML SYRINGE SC SCH ×2 (08:40→21:37)
[2020-12-27] MEDS: Thiamine 100 MG TAB PO SCH (08:40)
[2020-12-27] MEDS: Metoprolol Tartrate 25 MG TAB PO SCH ×2 (08:40→21:33)
[2020-12-27] MEDS: Preparation H HC 1% Cream 26 GM TUBE TOP SCH ×2 (08:41→21:37)
[2020-12-27] MEDS: Ivermectin 3 MG TAB PO SCH (08:41)
[2020-12-27] MEDS: Insulin Glargine 15 UNITS in Pre-Filled Syringe SC SCH ×2 (09:20→21:38)
[2020-12-27] MEDS: methylPREDNISolone Sod Succ 40 MG VIAL IVP SCH ×2 (11:13→17:14)
[2020-12-27] MEDS: HumaLOG 300 UNITS/3 ML VIAL SC PRN ×2 (11:14→16:31)
[2020-12-27] MEDS: Temazepam 15 MG CAP PO PRN (21:34)
[2020-12-27] MEDS: Cholecalciferol 1,000 UNITS (25 MCG) TAB PO SCH (21:35)
[2020-12-27] MEDS: Melatonin 3 MG TAB PO PRN (21:37)
[2020-12-28] MEDS: methylPREDNISolone Sod Succ 40 MG VIAL IVP SCH ×4 (01:19→17:16)
[2020-12-28 03:57] LABS: #Lymphocytes 1.3 thou/uL (1.20-3.40); #Monocytes 0.5 thou/uL (0.11-0.59); #Neutrophils 8.6 thou/uL (1.40-6.50); %Eosinophils 0.2 % (0.0-10.0); %Lymphocytes 12.2 % (21.0-51.0); %Monocytes 4.8 % (0.0-10.0); %Neutrophils 82.7 % (42.0-75.0); Hemoglobin 13.9 g/dL (14.0-18.0); Mean Corpuscular HGB CONC 34.6 g/dL (32.0-36.0); Mean Corpuscular Hemoglobin 30.2 pg (27.0-31.0); Mean Corpuscular Volume 87.3 fL (78.0-98.0); Mean Platelet Volume 8.8 fL (7.4-10.4); Platelet Count 236 thou/uL (130-400); Red Blood Cell (RBC) Count 4.61 mill/uL (4.70-6.10); White Blood Cell (WBC) Count 10.3 thou/uL (4.8-10.8)
[2020-12-28 04:17] LABS: Anion Gap 14 mmol/L (10-20); BUN (Urea Nitrogen) 26 mg/dL (8.9-20.6); CRP (Inflammatory) Less than 0.50 mg/dL (= or < 0.5); Calc. Creatinine Clearance 147 mL/min (70-130); Calcium 8.3 mg/dL (7.8-10.44); Carbon Dioxide 26 mmol/L (22-29); Chloride 99 mmol/L (98-107); Glucose 120 mg/dL (70-105); Potassium 4.7 mmol/L (3.5-5.1); Sodium 134 mmol/L (136-145)
[2020-12-28] MEDS: Piperacillin/Tazobactam 3.375 GM in Sodium Chloride 0.9% 100 ML IVPB SCH ×4 (05:19→23:14)
[2020-12-28] MEDS: Mometasone Furoate 120 PUFF 220 MCG INH SCH ×2 (06:19→18:24)
[2020-12-28] MEDS: metFORMIN 500 MG TAB PO SCH ×2 (08:10→16:33)
[2020-12-28] MEDS: Zinc Sulfate 220 MG CAP PO SCH (08:11)
[2020-12-28] MEDS: Enoxaparin Sodium 100 MG/ML SYRINGE SC SCH ×2 (08:11→21:42)
[2020-12-28] MEDS: Aspirin 325 mg Enteric Coated Tablet PO SCH (08:11)
[2020-12-28] MEDS: Thiamine 100 MG TAB PO SCH (08:11)
[2020-12-28] MEDS: Ascorbic Acid 500 mg Chewable Tablet PO SCH ×2 (08:11→21:40)
[2020-12-28] MEDS: Ivermectin 3 MG TAB PO SCH (08:14)
[2020-12-28] MEDS: Metoprolol Tartrate 25 MG TAB PO SCH ×3 (08:21→21:43)
[2020-12-28] MEDS: Preparation H HC 1% Cream 26 GM TUBE TOP SCH ×2 (08:24→21:45)
[2020-12-28] MEDS: Insulin Glargine 15 UNITS in Pre-Filled Syringe SC SCH (08:28)
[2020-12-28] MEDS: HumaLOG 300 UNITS/3 ML VIAL SC PRN ×2 (11:20→17:02)
[2020-12-28] MEDS: Acetaminophen 325 MG TAB PO PRN (13:54)
[2020-12-28] MEDS: HYDROcodone/Acetaminophen 5/325 mg Tablet PO PRN (17:39)
[2020-12-28] MEDS: Cholecalciferol 1,000 UNITS (25 MCG) TAB PO SCH (21:40)
[2020-12-28] MEDS: Lantus 1000 UNITS/10 ML VIAL SC SCH (21:44)
[2020-12-28] MEDS: Clindamycin/D5W 600 MG in Premix Bag 1 BAG IVPB SCH (21:45)
[2020-12-29] MEDS: methylPREDNISolone Sod Succ 40 MG VIAL IVP SCH ×4 (00:04→17:29)
[2020-12-29] MEDS: HYDROcodone/Acetaminophen 5/325 mg Tablet PO PRN ×3 (00:07→08:09)
[2020-12-29] MEDS: Temazepam 15 MG CAP PO PRN ×2 (00:07→21:34)
[2020-12-29] MEDS: Piperacillin/Tazobactam 3.375 GM in Sodium Chloride 0.9% 100 ML IVPB SCH ×4 (03:26→22:02)
[2020-12-29] MEDS: Clindamycin/D5W 600 MG in Premix Bag 1 BAG IVPB SCH ×3 (05:09→21:45)
[2020-12-29] MEDS: HumaLOG 300 UNITS/3 ML VIAL SC PRN ×3 (05:23→15:44)
[2020-12-29] MEDS: Mometasone Furoate 120 PUFF 220 MCG INH SCH ×2 (07:36→19:17)
[2020-12-29] MEDS: Zinc Sulfate 220 MG CAP PO SCH (08:08)
[2020-12-29] MEDS: metFORMIN 500 MG TAB PO SCH ×2 (08:08→17:28)
[2020-12-29] MEDS: Aspirin 325 mg Enteric Coated Tablet PO SCH (08:08)
[2020-12-29] MEDS: Thiamine 100 MG TAB PO SCH (08:09)
[2020-12-29] MEDS: Ascorbic Acid 500 mg Chewable Tablet PO SCH ×2 (08:09→21:32)
[2020-12-29] MEDS: Preparation H HC 1% Cream 26 GM TUBE TOP SCH ×2 (08:10→21:46)
[2020-12-29] MEDS: Metoprolol Tartrate 25 MG TAB PO SCH ×2 (08:49→21:32)
[2020-12-29] MEDS: Enoxaparin Sodium 100 MG/ML SYRINGE SC SCH ×2 (08:49→21:39)
[2020-12-29] MEDS ORDERED: Ketorolac Tromethamine 30 MG/ML VIAL IVP SCH (11:00)
[2020-12-29] MEDS ORDERED: Morphine 2 MG/ML VIAL SLOW IVP SCH (11:00)
[2020-12-29] MEDS: Lantus 1000 UNITS/10 ML VIAL SC SCH ×2 (11:29→21:39)
[2020-12-29] MEDS: HYDROcodone/Acetaminophen 10/325 mg Tablet PO PRN ×3 (12:04→21:34)
[2020-12-29] MEDS: Morphine 2 MG/ML VIAL SLOW IVP PRN (20:00)
[2020-12-29] MEDS: Cholecalciferol 1,000 UNITS (25 MCG) TAB PO SCH (21:32)
[2020-12-29] MEDS ORDERED: Fentanyl 100 MCG/2 ML VIAL SLOW IVP SCH (23:59)
[2020-12-30] MEDS: Acetaminophen 325 MG TAB PO PRN
[2020-12-30] MEDS: methylPREDNISolone Sod Succ 40 MG VIAL IVP SCH ×2 (00:02→06:05)
[2020-12-30 00:33] LABS: #Basophils 0.2 thou/uL (0.0-0.2); #Eosinphils 0.1 thou/uL (0.0-0.7); #Lymphocytes 2.7 thou/uL (1.20-3.40); #Monocytes 1.4 thou/uL (0.11-0.59); #Neutrophils 14.8 thou/uL (1.40-6.50); %Basophils 0.9 % (0.0-1.0); %Eosinophils 0.5 % (0.0-10.0); %Lymphocytes 14.2 % (21.0-51.0); %Monocytes 7.4 % (0.0-10.0); %Neutrophils 76.9 % (42.0-75.0); Hemoglobin 13.1 g/dL (14.0-18.0); Mean Corpuscular HGB CONC 33.9 g/dL (32.0-36.0); Mean Corpuscular Hemoglobin 29.3 pg (27.0-31.0); Mean Corpuscular Volume 86.5 fL (78.0-98.0); Mean Platelet Volume 8.9 fL (7.4-10.4); Platelet Count 245 thou/uL (130-400); RBC Distribution Width 12.2 % (11.5-14.5); Red Blood Cell (RBC) Count 4.47 mill/uL (4.70-6.10); White Blood Cell (WBC) Count 19.2 thou/uL (4.8-10.8)
[2020-12-30 00:51] LABS: Lactic Acid 1.5 mmol/L (0.5-2.2)
[2020-12-30 00:55] LABS: ALT (SGPT) 41 U/L (8-55); AST (SGOT) 18 U/L (5-34); Alkaline Phosphatase 77 U/L (40-110); Anion Gap 11 mmol/L (10-20); BUN (Urea Nitrogen) 20 mg/dL (8.9-20.6); Bilirubin, Total 0.5 mg/dL (0.2-1.2); Calc. Creatinine Clearance 153 mL/min (70-130); Calcium 7.7 mg/dL (7.8-10.44); Carbon Dioxide 27 mmol/L (22-29); Chloride 101 mmol/L (98-107); Glucose 164 mg/dL (70-105); Magnesium 2.1 mg/dL (1.6-2.6); Potassium 4.4 mmol/L (3.5-5.1); Sodium 135 mmol/L (136-145)
[2020-12-30] MEDS: Morphine 2 MG/ML VIAL SLOW IVP PRN ×2 (02:25→06:07)
[2020-12-30] MEDS: Piperacillin/Tazobactam 3.375 GM in Sodium Chloride 0.9% 100 ML IVPB SCH ×4 (03:31→21:02)
[2020-12-30] MEDS: HYDROcodone/Acetaminophen 10/325 mg Tablet PO PRN ×4 (03:31→21:01)
[2020-12-30] MEDS: Clindamycin/D5W 600 MG in Premix Bag 1 BAG IVPB SCH ×3 (06:05→21:02)
[2020-12-30] MEDS: HumaLOG 300 UNITS/3 ML VIAL SC PRN (06:18)
[2020-12-30] MEDS: Mometasone Furoate 120 PUFF 220 MCG INH SCH ×2 (07:00→19:10)
[2020-12-30] MEDS: Aspirin 325 mg Enteric Coated Tablet PO SCH (09:02)
[2020-12-30] MEDS: Ascorbic Acid 500 mg Chewable Tablet PO SCH ×2 (09:02→21:00)
[2020-12-30] MEDS: metFORMIN 500 MG TAB PO SCH ×2 (09:02→16:35)
[2020-12-30] MEDS: Zinc Sulfate 220 MG CAP PO SCH (09:03)
[2020-12-30] MEDS: Thiamine 100 MG TAB PO SCH (09:03)
[2020-12-30] MEDS: Lantus 1000 UNITS/10 ML VIAL SC SCH ×2 (09:04→21:03)
[2020-12-30] MEDS: Preparation H HC 1% Cream 26 GM TUBE TOP SCH ×2 (09:04→20:59)
[2020-12-30] MEDS: Metoprolol Tartrate 25 MG TAB PO SCH ×2 (09:15→20:59)
[2020-12-30] MEDS: Enoxaparin Sodium 100 MG/ML SYRINGE SC SCH (09:47)
[2020-12-30] MEDS ORDERED: Morphine 4 MG/ML VIAL SLOW IVP PRN (11:36)
[2020-12-30] MEDS: Cholecalciferol 1,000 UNITS (25 MCG) TAB PO SCH (21:01)
[2020-12-31] MEDS: Clindamycin/D5W 600 MG in Premix Bag 1 BAG IVPB SCH ×3 (04:25→21:06)
[2020-12-31] MEDS: Piperacillin/Tazobactam 3.375 GM in Sodium Chloride 0.9% 100 ML IVPB SCH ×4 (04:25→21:27)
[2020-12-31] MEDS: Mometasone Furoate 120 PUFF 220 MCG INH SCH ×2 (04:26→21:05)
[2020-12-31 06:29] LABS: Anion Gap 13 mmol/L (10-20); BUN (Urea Nitrogen) 25 mg/dL (8.9-20.6); Calc. Creatinine Clearance 160 mL/min (70-130); Calcium 7.4 mg/dL (7.8-10.44); Carbon Dioxide 25 mmol/L (22-29); Chloride 102 mmol/L (98-107); Glucose 112 mg/dL (70-105); Potassium 3.6 mmol/L (3.5-5.1); Sodium 136 mmol/L (136-145)
[2020-12-31 06:37] LABS: Band 10 % (5-11); Eosinophils 1 % (0-10); Hemoglobin 9.5 g/dL (14.0-18.0); Lymphocytes 31 % (21-51); MDiff Complete? YES; Mean Corpuscular Hemoglobin 29.5 pg (27.0-31.0); Mean Corpuscular Volume 86.8 fL (78.0-98.0); Metamyelocyte 1 % (0-0); Monocytes 10 % (0-10); Neutrophil 47 % (42-75); Platelet Count 200 thou/uL (130-400); Platelet Morphology Comment Appears Adequate; RBC Distribution Width 12.5 % (11.5-14.5); White Blood Cell (WBC) Count 14.7 thou/uL (4.8-10.8)
[2020-12-31] MEDS: Ascorbic Acid 500 mg Chewable Tablet PO SCH ×2 (07:58→21:07)
[2020-12-31] MEDS: metFORMIN 500 MG TAB PO SCH ×2 (07:58→15:26)
[2020-12-31] MEDS: Metoprolol Tartrate 25 MG TAB PO SCH ×2 (07:58→21:27)
[2020-12-31] MEDS: Zinc Sulfate 220 MG CAP PO SCH (07:58)
[2020-12-31] MEDS: Preparation H HC 1% Cream 26 GM TUBE TOP SCH ×2 (07:59→20:30)
[2020-12-31] MEDS: predniSONE 20 MG TAB PO SCH (07:59)
[2020-12-31] MEDS: Aspirin 325 mg Enteric Coated Tablet PO SCH (07:59)
[2020-12-31] MEDS: Thiamine 100 MG TAB PO SCH (07:59)
[2020-12-31] MEDS: Lantus 1000 UNITS/10 ML VIAL SC SCH ×2 (07:59→21:07)
[2020-12-31] MEDS: HumaLOG 300 UNITS/3 ML VIAL SC PRN ×2 (17:04→21:08)
[2020-12-31] MEDS: Cholecalciferol 1,000 UNITS (25 MCG) TAB PO SCH (21:07)
[2021-01-01] MEDS: HYDROcodone/Acetaminophen 10/325 mg Tablet PO PRN ×3 (00:24→20:47)
[2021-01-01] MEDS: Piperacillin/Tazobactam 3.375 GM in Sodium Chloride 0.9% 100 ML IVPB SCH ×2 (03:57→11:50)
[2021-01-01] MEDS: Temazepam 15 MG CAP PO PRN ×2 (03:58→21:00)
[2021-01-01] MEDS: Clindamycin/D5W 600 MG in Premix Bag 1 BAG IVPB SCH (04:10)
[2021-01-01 06:13] LABS: #Basophils 0.1 thou/uL (0.0-0.2); #Eosinphils 0.2 thou/uL (0.0-0.7); #Lymphocytes 4.1 thou/uL (1.20-3.40); #Monocytes 1.1 thou/uL (0.11-0.59); %Basophils 0.7 % (0.0-1.0); %Eosinophils 1.1 % (0.0-10.0); %Lymphocytes 24.8 % (21.0-51.0); %Monocytes 6.7 % (0.0-10.0); %Neutrophils 66.8 % (42.0-75.0); Hemoglobin 8.5 g/dL (14.0-18.0); Mean Corpuscular HGB CONC 34.1 g/dL (32.0-36.0); Mean Corpuscular Hemoglobin 29.7 pg (27.0-31.0); Mean Corpuscular Volume 86.9 fL (78.0-98.0); Mean Platelet Volume 8.6 fL (7.4-10.4); Platelet Count 200 thou/uL (130-400); RBC Distribution Width 13.1 % (11.5-14.5); Red Blood Cell (RBC) Count 2.87 mill/uL (4.70-6.10); White Blood Cell (WBC) Count 16.5 thou/uL (4.8-10.8)
[2021-01-01] MEDS: Mometasone Furoate 120 PUFF 220 MCG INH SCH ×2 (06:58→18:48)
[2021-01-01] MEDS: metFORMIN 500 MG TAB PO SCH ×2 (08:28→18:17)
[2021-01-01] MEDS: Thiamine 100 MG TAB PO SCH (08:28)
[2021-01-01] MEDS: Zinc Sulfate 220 MG CAP PO SCH (08:29)
[2021-01-01] MEDS: predniSONE 20 MG TAB PO SCH (08:29)
[2021-01-01] MEDS: Ascorbic Acid 500 mg Chewable Tablet PO SCH ×2 (08:30→21:01)
[2021-01-01] MEDS: Preparation H HC 1% Cream 26 GM TUBE TOP SCH ×2 (08:32→21:02)
[2021-01-01] MEDS: Lantus 1000 UNITS/10 ML VIAL SC SCH ×2 (11:50→20:51)
[2021-01-01] MEDS: Metoprolol Tartrate 25 MG TAB PO SCH ×2 (11:51→20:53)
[2021-01-01] MEDS: HumaLOG 300 UNITS/3 ML VIAL SC PRN (18:16)
[2021-01-01] MEDS: Cholecalciferol 1,000 UNITS (25 MCG) TAB PO SCH (20:52)
[2021-01-02] MEDS: HYDROcodone/Acetaminophen 10/325 mg Tablet PO PRN ×3 (02:58→21:04)
[2021-01-02 06:35] LABS: Band 7 % (5-11); Eosinophils 2 % (0-10); Hemoglobin 8.7 g/dL (14.0-18.0); Lymphocytes 32 % (21-51); MDiff Complete? YES; Mean Corpuscular HGB CONC 35.2 g/dL (32.0-36.0); Mean Corpuscular Hemoglobin 30.9 pg (27.0-31.0); Mean Corpuscular Volume 87.8 fL (78.0-98.0); Mean Platelet Volume 8.5 fL (7.4-10.4); Metamyelocyte 2 % (0-0); Monocytes 4 % (0-10); Myelocyte 3 % (0-0); Neutrophil 49 % (42-75); Platelet Count 232 thou/uL (130-400); Platelet Morphology Comment Appears Adequate; RBC Distribution Width 13.4 % (11.5-14.5); Reactive Lymphocytes 1 % (0-10); Red Blood Cell (RBC) Count 2.82 mill/uL (4.70-6.10); White Blood Cell (WBC) Count 15.9 thou/uL (4.8-10.8)
[2021-01-02] MEDS: Preparation H HC 1% Cream 26 GM TUBE TOP SCH ×2 (08:57→21:03)
[2021-01-02] MEDS: Mometasone Furoate 120 PUFF 220 MCG INH SCH ×2 (09:01→19:03)
[2021-01-02] MEDS: Metoprolol Tartrate 25 MG TAB PO SCH ×2 (09:11→21:03)
[2021-01-02] MEDS: Zinc Sulfate 220 MG CAP PO SCH (09:12)
[2021-01-02] MEDS: predniSONE 20 MG TAB PO SCH (09:12)
[2021-01-02] MEDS: metFORMIN 500 MG TAB PO SCH ×2 (09:12→17:38)
[2021-01-02] MEDS: Thiamine 100 MG TAB PO SCH (09:13)
[2021-01-02] MEDS: Ascorbic Acid 500 mg Chewable Tablet PO SCH ×2 (09:13→21:02)
[2021-01-02] MEDS: Lantus 1000 UNITS/10 ML VIAL SC SCH ×2 (09:54→21:07)
[2021-01-02] MEDS: Cholecalciferol 1,000 UNITS (25 MCG) TAB PO SCH (21:02)
[2021-01-02] MEDS: Temazepam 15 MG CAP PO PRN (21:05)
[2021-01-02] MEDS: HumaLOG 300 UNITS/3 ML VIAL SC PRN (21:08)
[2021-01-03] MEDS: HYDROcodone/Acetaminophen 10/325 mg Tablet PO PRN ×3 (01:06→22:01)
[2021-01-03 06:03] LABS: #Basophils 0.1 thou/uL (0.0-0.2); #Eosinphils 0.1 thou/uL (0.0-0.7); #Lymphocytes 3.2 thou/uL (1.20-3.40); #Neutrophils 12.1 thou/uL (1.40-6.50); %Basophils 0.7 % (0.0-1.0); %Eosinophils 0.8 % (0.0-10.0); %Lymphocytes 19.2 % (21.0-51.0); %Monocytes 6.2 % (0.0-10.0); %Neutrophils 73.2 % (42.0-75.0); Hemoglobin 8.7 g/dL (14.0-18.0); Mean Corpuscular HGB CONC 34.4 g/dL (32.0-36.0); Mean Corpuscular Hemoglobin 30.6 pg (27.0-31.0); Mean Corpuscular Volume 88.9 fL (78.0-98.0); Platelet Count 253 thou/uL (130-400); RBC Distribution Width 14.6 % (11.5-14.5); Red Blood Cell (RBC) Count 2.85 mill/uL (4.70-6.10); White Blood Cell (WBC) Count 16.6 thou/uL (4.8-10.8)
[2021-01-03] MEDS: Metoprolol Tartrate 25 MG TAB PO SCH ×2 (08:40→20:41)
[2021-01-03] MEDS: Thiamine 100 MG TAB PO SCH (08:41)
[2021-01-03] MEDS: Ascorbic Acid 500 mg Chewable Tablet PO SCH ×2 (08:41→20:43)
[2021-01-03] MEDS: predniSONE 20 MG TAB PO SCH (08:42)
[2021-01-03] MEDS: Zinc Sulfate 220 MG CAP PO SCH (08:42)
[2021-01-03] MEDS: Preparation H HC 1% Cream 26 GM TUBE TOP SCH ×2 (08:42→20:44)
[2021-01-03] MEDS: Lantus 1000 UNITS/10 ML VIAL SC SCH ×2 (08:42→20:44)
[2021-01-03] MEDS: metFORMIN 500 MG TAB PO SCH ×2 (08:42→17:18)
[2021-01-03] MEDS: Mometasone Furoate 120 PUFF 220 MCG INH SCH ×2 (10:43→17:54)
[2021-01-03 13:25] VITALS: BMI 29.0
[2021-01-03] MEDS: HumaLOG 300 UNITS/3 ML VIAL SC PRN ×2 (17:56→20:45)
[2021-01-03] MEDS: Cholecalciferol 1,000 UNITS (25 MCG) TAB PO SCH (20:43)
[2021-01-03] MEDS ORDERED: Furosemide 20 MG/2 ML VIAL SLOW IVP SCH (21:30)
[2021-01-03 21:43] LABS: #Basophils 0.1 thou/uL (0.0-0.2); #Eosinphils 0.1 thou/uL (0.0-0.7); #Lymphocytes 2.7 thou/uL (1.20-3.40); %Basophils 0.3 % (0.0-1.0); %Eosinophils 0.5 % (0.0-10.0); %Lymphocytes 13.7 % (21.0-51.0); %Neutrophils 80.5 % (42.0-75.0); Mean Corpuscular HGB CONC 34.3 g/dL (32.0-36.0); Mean Corpuscular Hemoglobin 30.7 pg (27.0-31.0); Mean Corpuscular Volume 89.5 fL (78.0-98.0); Mean Platelet Volume 8.2 fL (7.4-10.4); Platelet Count 277 thou/uL (130-400); RBC Distribution Width 15.4 % (11.5-14.5); Red Blood Cell (RBC) Count 3.24 mill/uL (4.70-6.10); White Blood Cell (WBC) Count 19.9 thou/uL (4.8-10.8)
[2021-01-03 21:48] LABS: Lactic Acid 1.8 mmol/L (0.5-2.2)
[2021-01-03 21:52] LABS: Anion Gap 14 mmol/L (10-20); BUN (Urea Nitrogen) 19 mg/dL (8.9-20.6); Calc. Creatinine Clearance 137 mL/min (70-130); Calcium 8.1 mg/dL (7.8-10.44); Carbon Dioxide 25 mmol/L (22-29); Chloride 103 mmol/L (98-107); Glucose 210 mg/dL (70-105); Magnesium 2.1 mg/dL (1.6-2.6); Potassium 4.7 mmol/L (3.5-5.1); Sodium 137 mmol/L (136-145)
[2021-01-03] MEDS: Melatonin 3 MG TAB PO PRN (22:44)
[2021-01-04] MEDS: HYDROcodone/Acetaminophen 10/325 mg Tablet PO PRN ×2 (05:56→14:27)
[2021-01-04 07:41] LABS: #Basophils 0.1 thou/uL (0.0-0.2); #Eosinphils 0.4 thou/uL (0.0-0.7); #Lymphocytes 3.4 thou/uL (1.20-3.40); #Monocytes 0.9 thou/uL (0.11-0.59); #Neutrophils 8.4 thou/uL (1.40-6.50); %Basophils 0.5 % (0.0-1.0); %Eosinophils 3.2 % (0.0-10.0); %Lymphocytes 25.6 % (21.0-51.0); %Monocytes 7.1 % (0.0-10.0); %Neutrophils 63.6 % (42.0-75.0); Hemoglobin 9.3 g/dL (14.0-18.0); Mean Corpuscular HGB CONC 33.1 g/dL (32.0-36.0); Mean Corpuscular Volume 90.6 fL (78.0-98.0); Mean Platelet Volume 7.8 fL (7.4-10.4); Platelet Count 248 thou/uL (130-400); White Blood Cell (WBC) Count 13.1 thou/uL (4.8-10.8)
[2021-01-04] MEDS: Mometasone Furoate 120 PUFF 220 MCG INH SCH (08:16)
[2021-01-04] MEDS: predniSONE 20 MG TAB PO SCH (08:38)
[2021-01-04] MEDS: Ascorbic Acid 500 mg Chewable Tablet PO SCH (08:38)
[2021-01-04] MEDS: Zinc Sulfate 220 MG CAP PO SCH (08:38)
[2021-01-04] MEDS: metFORMIN 500 MG TAB PO SCH (08:39)
[2021-01-04] MEDS: Thiamine 100 MG TAB PO SCH (08:39)
[2021-01-04] MEDS: Metoprolol Tartrate 25 MG TAB PO SCH (08:39)
[2021-01-04] MEDS: Lantus 1000 UNITS/10 ML VIAL SC SCH (08:45)
[2021-01-04] MEDS: Preparation H HC 1% Cream 26 GM TUBE TOP SCH (08:47)
[2021-01-04 13:36] VITALS: BP 123/86; TEMP 97.8
== END 2021-01-04 15:15 | disposition home or self-care (01) | DRG 871 ==
LOC: ERS 03:30 → ERHOLD 05:01 → 2SW 07:15 → CCU 12-20 18:36 → IMCU/EMU 12-27 20:24 → T4-B 12-28 23:38
PROVIDERS: ADMIT Student in an Organized Health Care Education/Training Program; ATTEND Internal Medicine
PROC: XW13325 Transfusion of Convalescent Plasma (Nonautologous) into Peripheral Vein, Percutaneous Approach, New Technology Group 5 (ICD-10-PCS; principal; 2020-12-12)
PROC: 5A0955A Assistance with Respiratory Ventilation, Greater than 96 Consecutive Hours, High Flow/Velocity Cannula (ICD-10-PCS; 2020-12-12)
PROC: XW033E5 Introduction of Remdesivir Anti-infective into Peripheral Vein, Percutaneous Approach, New Technology Group 5 (ICD-10-PCS; 2020-12-12)
PROC: 8E0ZXY6 Isolation (ICD-10-PCS; 2020-12-12)
PROC: XW033H5 Introduction of Tocilizumab into Peripheral Vein, Percutaneous Approach, New Technology Group 5 (ICD-10-PCS; 2020-12-20)
PROC: 5A09457 Assistance with Respiratory Ventilation, 24-96 Consecutive Hours, Continuous Positive Airway Pressure (ICD-10-PCS; 2020-12-21)
DX: A41.89 Other specified sepsis (principal); U07.1 COVID-19; J12.82 Pneumonia due to coronavirus disease 2019; J96.01 Acute respiratory failure with hypoxia; F05 Delirium due to known physiological condition; G93.40 Encephalopathy, unspecified; L03.113 Cellulitis of right upper limb; T80.29XA Infection following other infusion, transfusion and therapeutic injection, initial encounter; L76.32 Postprocedural hematoma of skin and subcutaneous tissue following other procedure; D68.32 Hemorrhagic disorder due to extrinsic circulating anticoagulants; J90 Pleural effusion, not elsewhere classified; I10 Essential (primary) hypertension; K64.9 Unspecified hemorrhoids; E11.65 Type 2 diabetes mellitus with hyperglycemia; E66.9 Obesity, unspecified; T38.0X5A Adverse effect of glucocorticoids and synthetic analogues, initial encounter; T85.838A Hemorrhage due to other internal prosthetic devices, implants and grafts, initial encounter; Y84.8 Other medical procedures as the cause of abnormal reaction of the patient, or of later complication, without mention of misadventure at the time of the procedure; T45.515A Adverse effect of anticoagulants, initial encounter; D50.0 Iron deficiency anemia secondary to blood loss (chronic); Z28.21 Immunization not carried out because of patient refusal; Z80.0 Family history of malignant neoplasm of digestive organs; Z79.84 Long term (current) use of oral hypoglycemic drugs; Z87.891 Personal history of nicotine dependence; Z91.19 Patient's noncompliance with other medical treatment and regimen; Z78.1 Physical restraint status; Z68.30 Body mass index [BMI] 30.0-30.9, adult
CPT/HCPCS: 36415; 36416; 36430; 36600; 71045; 80048; 80053; 80076; 82565; 82728; 82805; 83036; 83605; 83735; 83880; 85014; 85018; 85025; 85049; 85379; 86140; 86850; 86900; 86901; 87040; 93005; 93010; 94660; 99285; J0456; J0696; J1650; J1815; J1940; J2060; J2270; J2543; J2920; J2930; J3010; J3262; J3486; J3490; J7050; J7512; J8540; P9017